=== PATIENT | female | born 1960 | race Caucasian/White ===

== ENCOUNTER 2023-07-01 08:43 | Emergency (ER) | payer BC, SELFPAY ==
[2023-07-01] VITALS (24 sets, daily range): BP systolic 119–150; BP diastolic 63–80; PULSE 69–97; RESP 12–20; TEMP 36.4; O2SAT 93–100
--- NOTE | ~2023-07-01 | XR_ITS ---
EXAMINATION: XR chest 1V portable Exam Date/Time: 07/01/2023 14:05 CDT HISTORY: HEART PALPITATIONS X 1 DAY WITHOUT PRIOR HX Comparison: None. RESULT: Lines, tubes, and devices: None. Lungs and pleura: Clear. Cardiomediastinal silhouette: Unremarkable. Other: No acute osseous or upper abdominal finding. IMPRESSION: No acute cardiopulmonary process. Reviewed, dictated and finalized at location K.
--- NOTE | 2023-07-01 08:46 | ECG_ITS ---
Measurements Intervals [place] Rate: 96 P: 64 SD: 121 QRS: 88 QRSD: 114 T: 18 QT: 322 QTc: 408 Interpretive Statements SINUS RHYTHM VENTRICULAR PREMATURE COMPLEXES INTRAVENTRICULAR CONDUCTION DELAY NONSPECIFIC ST & T-WAVE ABNORMALITY- ANT/INF LEADS BASELINE ARTIFACT- I, II, III, AVR, AVL, AVF BORDERLINE ECG NO PREVIOUS ECG AVAILABLE FOR COMPARISON Electronically Signed On 07-01-2023 9:33:18 CDT by Noé Enamorado D.O.
--- NOTE | 2023-07-01 08:59 | ECG_ITS ---
Measurements Intervals [place] Rate: 94 P: 66 [place]: 126 QRS: 86 QRSD: 89 T: -4 QT: 329 QTc: 413 Interpretive Statements SINUS RHYTHM POSSIBLE LEFT ATRIAL ENLARGEMENT LOW QRS VOLTAGE IN PRECORDIAL LEADS BORDERLINE ST-T WAVE ABNORMALITY- DIFFUSE LEADS BORDERLINE ECG COMPARED TO ECG 07/01/2023 08:52:15 NO SIGNIFICANT CHANGES Electronically Signed On 07-01-2023 15:37:21 CDT by Noé Enamorado D.O.
[2023-07-01 09:41] LABS: Basophils Absolute Auto 0.1 K/mm3 (0.0-0.1); Basophils Percent Auto 1.1 % (0.2-1.2); Eosinophils Percent Auto 0.4 % (0-4.4); Hematocrit 43.1 % (37.0-47.0); Immature Granulocyte Absolute 0.02 K/mm3 (0.00-0.031); Immature Granulocyte Percent A 0.3 % (0-0.5); Lymphocytes Absolute Auto 1.68 K/mm3 (0.9-3.2); Lymphocytes Percent Auto 22.5 % (18.3-44.2); Mean Corpuscular HGB Conc 32.5 g/dl (32-36); Mean Corpuscular Hemoglobin 30.4 pg (26-34); Mean Corpuscular Volume 93.7 fl (80-100); Mean Platelet Volume 11.2 fl (7.4-10.4); Monocytes Absolute Auto 0.6 K/mm3 (0.1-0.6); Monocytes Percent Auto 7.4 % (2.6-8.5); Neutrophils Absolute Auto 5.1 K/mm3 (1.3-6.7); Neutrophils Percent Auto 68.3 % (45.5-73.1); Platelet Count Result 276 k/mm3 (150-375); Red Cell Distribution Width 13.2 % (11.5-14.5); White Blood Count 7.5 K/mm3 (4.5-10.0)
[2023-07-01 09:53] LABS: Alanine Aminotransferase 43 U/L (6-35); Albumin Level 4.7 g/dL (3.5-5.1); Alkaline Phosphatase 88 U/L (38-126); Anion Gap 4 mmol/L (8-16); Aspartate Amino Transferase 45 U/L (14-36); Bilirubin,Total 0.9 mg/dL (0.2-1.3); Blood Urea Nitrogen 10 mg/dL (7-17); Calcium 9.3 mg/dL (8.4-10.2); Carbon Dioxide 28 mmol/L (22-30); Chloride 106 mmol/L (98-107); Estimated CRCL calculation 83 ml/min; Estimated Glomerular Filt Rate > 60; Glucose 105 mg/dL (65-110); Potassium 4.3 mmol/L (3.4-5.0); Sodium 138 mmol/L (137-145)
[2023-07-01 10:04] LABS: Troponin I < 0.012 ng/mL (0.000-0.034)
--- NOTE | 2023-07-01 10:24 | ED.ARRPALP ---
HPI - Arrhythmia/Palpitations General Chief Complaint: Arrhythmia/Palpitations Stated Complaint: Palpitations Time Seen by Provider: 07/01/23 09:21 History of Present Illness HPI narrative: 62-year-old female presented ED for evaluation of heart palpitations that she felt persisted from 12 midnight until 8 AM this morning. Patient states she has had heart palpitations previously but they were only short lasting. Patient denies any prior diagnosis of atrial fibrillation but states she does have a family history of it. Patient denies any history of coronary artery disease and has not had a stress test. Patient states while she was having her palpitations she had no associated chest pain. Patient does report some chest tightness but states that her heart palpitations have resolved Related Data Allergies Allergy/AdvReac Type Severity Reaction Status Date / Time erythromycin base Allergy Intermediate RASH Verified 07/01/23 09:31 Review of Systems Review of Systems: All systems reviewed & are unremarkable except as noted in HPI and below Exam Narrative: APPEARANCE: Well appearing, no pain, no distress, well-nourished. HEAD: normocephalic, atraumatic. EYES: PERRLA/EOMI, conjunctivae clear. NOSE: Normal no drainage NECK: Supple. No adenopathy, no masses. RESPIRATORY: Airway patent, respirations nonlabored. Clear to auscultation bilaterally, no rales, rhonchi, wheezing. CARDIOVASCULAR: Regular rate and rhythm without murmurs rubs or gallops. ABDOMINAL: Soft, nontender, nondistended, normal bowel sounds MUSCULOSKELETAL: Moves all extremities. Strength/ROM intact, No edema, No calf tenderness. NEURO: Alert. Cranial nerves II through XII intact. Grossly intact SKIN: Warm, dry. Normal Color Course Course Emergency Course: 60-year-old female presented the ED for evaluation for heart palpitations that lasted for approximately midnight until 8 AM. Patient has not been tachycardic in the emergency department. Patient feels symptom-free. Patient is afebrile with medical ptosis and a stable hemoglobin. Patient has no significant abnormalities on her CMP and has a normal magnesium. Patient had negative serial troponins. Patient's EKG did show some intermittent PVCs but no sustained SVT or atrial fib or tachycardia. Holter monitor was ordered. Patient and family were updated the results of the work-up. Patient was provided follow-up with cardiology and patient was encouraged of close follow-up with her primary care physician. Patient was also educated on reasons to return to the emergency department. All questions and concerns were addressed. Vital Signs Vital signs: Vital Signs Temperature 97.6 F 07/01/23 09:10 Pulse Rate 94 07/01/23 09:10 Respiratory Rate 16 07/01/23 09:10 Blood Pressure 150/80 H 07/01/23 09:10 Pulse Oximetry 100 07/01/23 09:10 Oxygen Delivery Room Air 07/01/23 09:10 Temperature 97.6 F 07/01/23 09:10 Pulse Rate 71 07/01/23 15:03 Respiratory Rate 18 07/01/23 15:03 Blood Pressure 140/77 07/01/23 15:03 Pulse Oximetry 100 07/01/23 15:03 Oxygen Delivery Room Air 07/01/23 09:10 MDM - Arrhythmia/Palpitations Differential Diagnosis Differential diagnosis: Likely palpitations, sinus tachycardia, artial fibrillation, artial flutter, supraventricular tachycardia and ventricular tachycardia Lab Data Attestation: I reviewed the patient's lab results. 07/01/23 09:33 07/01/23 09:33 Labs: Lab Results 07/01/23 07/01/23 07/01/23 Range/Units 09:33 09:33 12:36 WBC 7.5 (4.5-10.0) K/mm3 RBC 4.60 (4.2-5.4) M/mm3 Hgb 14.0 (12.0-15.0) g/dL Hct 43.1 (37.0-47.0) % MCV 93.7 (80-100) fl MCH 30.4 (26-34) pg MCHC 32.5 (32-36) g/dl RDW 13.2 (11.5-14.5) % Plt Count 276 (150-375) k/mm3 MPV 11.2 H (7.4-10.4) fl Immature Gran % (Auto) 0.3 (0-0.5) % Neut % (Auto) 68.3 (45.5-73.1) % Lymph % (Auto)
[2023-07-01 13:03] LABS: Troponin I < 0.012 ng/mL (0.000-0.034)
--- NOTE | 2023-07-05 17:08 | P.PCNHOL_ITS ---
Holter/Event Monitor Holter/Event Monitor Date of procedure: 07/05/23 Holter/Event Procedure: 48 Hr Holter Monitor Diagnosis: Palpitations Indications: Palpitations Image/Tracing Quality: Adequate Finding: The basic cardiac rhythm is sinus with normal [place] QRS and QT interval. The heart rate varies from a minimum of 53 to a maximum of 132. The in mean rate was 76. There were no abrupt pauses or abnormalities of AV conduction observed. Supraventricular ectopic activity was infrequent consisting of occasional inf requent PACs. There were no runs of atrial tachyarrhythmias there were no examples of atrial fibrillation. PVCs were frequent consisting of a single unifocal PVCs occurring 6.2% of the complexes. There was 1 ventricular couplet the remainder of these occurred in the form of single PVCs there were no ventricular triplets or runs. The patient submitted a diary in which there were no entries made presumably there were no symptoms Conclusion: 1. Sinus rhythm with normal heart rate variability and frequent ventricular ectopic activity which is monomorphic and not complex with frequent PVCs. 2. Very infrequent atrial ectopy 3. No symptoms during this exam Andreas Keith MD [facility]
== END 2023-07-01 15:00 | disposition home or self-care (01) ==
PROVIDERS: Emergency Provider Emergency Medicine; PCP Family Medicine
DX: R00.2 Palpitations (principal)
CPT/HCPCS: 36415; 71045; 80053; 83735; 84484; 85025; 93005; 93225; 93226; 99284

== ENCOUNTER 2025-03-11 10:11 | Outpatient (CLI) | payer BC, SELFPAY ==
--- NOTE | ~2025-03-11 | DEXA_ITS ---
Bone Density Report Name: ANA ANDERSON Age: 64 Sex: Female Ethnicity: White Date of : 1960 Indication: postmenopausal; screening for osteoporosis; Referring Provider: RADHA, [facility] Study: Bone densitometry was performed. Exam Date: March 11, 2025 Accession number: [id number] Bone Density: Region BMD T-score Z-score Classification AP Spine(L1-L4) 0.863 -1.7 0.0 Osteopenia Femoral Neck (Left) 0.514 -3.0 -1.5 Osteoporosis Total Hip (Left) 0.679 -2.2 -1.0 Osteopenia Femoral Neck (Right) 0.524 -2.9 -1.5 Osteoporosis Total Hip (Right) 0.739 -1.7 -0.5 Osteopenia Total Hip Mean 0.709 -2.0 -0.8 Osteopenia World Health Organization criteria for BMD impression classify patients as: Normal (T-score at or above -1.0), Osteopenia (T-score between -1.0 and -2.5), or Osteoporosis (T-score at or below -2.5). 10-year Fracture Risk: FRAX not reported because: Some T-score for Spine Total or Hip Total or Femoral Neck at or below -2.5 Treated for osteoporosis Clinical Information Provided by Patient: Is being treated for osteoporosis Has used the following medications: Vitamin D, Calcium Patient maximum height was 62.0 Menopause Age: 55 Drinks caffeinated beverages Onset of menses at age 13 Number of children 1 Impression: The patient has osteoporosis, based on the Left Femoral Neck T-score. Discussion: It is important to ask patients whether they are taking their medications and to encourage continued and appropriate compliance with their osteoporosis therapies to reduce fracture risk. It is also important to review their risk factors and encourage appropriate calcium and vitamin D intakes, exercise, fall prevention and other lifestyle measures. Follow-Up: Consider a repeat BMD and Vertebral Fracture Assessment (VFA) exam in 2 years or sooner if medically necessary, to reassess this patient's status. Reported by: ANNABELLE on 03/11/2025 10:51:00 AM. Reviewed, dictated and finalized at location A.
--- NOTE | ~2025-03-11 | MM_ITS ---
EXAMINATION: MM screening jerry BI w garcia HISTORY: Screening TECHNIQUE: Craniocaudal and mediolateral oblique 3-D tomosynthesis images were obtained and synthetic 2-D images were generated. CAD analysis was submitted and interpreted. COMPARISON: 12/25/2010 BREAST PARENCHYMAL COMPOSITION: Not dense: There are scattered areas of fibroglandular density. FINDINGS: There is no evidence of suspicious mass, calcification, or architectural distortion to sugg est malignancy in either breast. There has been no suspicious interval change. IMPRESSION: 1. No mammographic evidence of malignancy. 2. Recommend routine screening mammography in one year. BI-RADS Category 1: Negative Reviewed, dictated and finalized at location B.
--- OUTSIDE RECORDS SUMMARY | 2025-03-11 10:19 | XMS_ITS | CONTINUITY OF CARE DOCUMENT ---
Author Name stew mathias Address Unknown Organization [facility] Office Address [address] [place] [address] Phone [phone] Care Team Providers Care Care Professional Name Role Phone Cindi LIM, Ta Unavailable [phone] KARLEY GARCIA MD Unavailable INSURANCE PROVIDERS Payer name Policy type / Coverage type [employer] red alliance party ID BLUE [facility] Blue Shield [id number]
--- OUTSIDE RECORDS SUMMARY | 2025-03-11 10:19 | XMS_ITS | Clinical Summary ---
Author Organization [facility] Address [address] [address] Care Team Providers Care Center Customer Service Associate Name Role Phone Nahid Patel MD Unavailable [phone] Source Comments [facility],non-owned Affiliates and Associated Physician Practices is amultiple site organization consisting of ambulatory clinics and hospital sitesin [place], [place], [place] and [place]. This disclosure is being madepursuant to the Care Everywhere program and may not contain all information available regarding this patient. Last updated 18.[facility] Allergies Active Allergy Reactions Criticality Noted Date Comments Erythromycin Rash 05/26/2009 Medications * Be aware that medications may not be up to date on this document. Alwaysverify current medications with the patient. No known medications Active Problems Problem Noted Date Diagnosed Date Encounter for health-related screening 9 Overview (01/18/2018): Last PAP 02/29/12: normal Last MAMM says 10/14/08, ordered '12 DXA do in 2012 IMO update 01 19 2018 Family History Medical History Relation Name Comments Heart Disease Father Hypertension Father Hypertension Mother Relation Name Status Comments Father Mother Social History Tobacco Use Types Packs/Day Years Used Date Smoking Tobacco: Never Smokeless Tobacco: Never Alcohol Use Standard Drinks/Week Comments Yes 0 (1 standard drink = 0.6 oz pur e alcohol) social Comments No Sex and Gender Information Value Date Recorded Sex Assigned at Not on file Legal Sex Female 6:12 AM [employer]ERC[employer]MENT [employer]IST Gender Identity Not on file Sexual Orientation Not on file Last Filed Vital Signs Vital Sign Reading Time Taken Comments Blood Pressure 136/70 02/29/2012 12:48 PM CDT Pulse - - Temperature - - Respiratory Rate - - Oxygen Saturation - - Inhaled Oxygen Concentration - - Weight 51.7 kg (114 lb) 02/29/2012 12:48 PM CDT Height 158.8 cm (5' 2.5 ) 02/29/2012 12:48 PM CD T Body Mass Index 20.52 02/29/2012 12:48 PM CDT Plan of Treatment Health Maintenance Due Date Last Done Comments COLOGUARD (AGES 45-75) - COL ON CA SCREENING 1960 COLON MONITORING 1960 COLONOSCOPY - COLON CA SCREENING 1960 CT COLONOGRAPHY - COLON CA SCREENING 1960 Colorectal Cancer Screening 1960 FIT - COLON CA SCREENING 1960 FLEX SIG - COLON CA SCREENING 1960 LIPID TESTING 1960 HIV SCREENING 1975 HEPATITIS C SCREENING 12/06/1978 DTAP/TDAP/TD VACCINES (1 - Tdap) 1979 PNEUMOCOCCAL VACCINE 50+ (1 of 1 - PCV) 2010 ZOSTER VACCINE (1 of 2) 2010 MAMMOGRAM 10/21/2012 10/21/2010, 10/21/2010, 09/20/2008 COVID-19 VACCINE (1 - 2023-2 5 season) 2024 DEPRESSION SCREENING 10/21/2024 INFLUENZA VACCINE (Season Ended) 2025 Respiratory Syncytial Virus (RSV) Vaccine Pt: or over 60 yrs (1 - 1-dose 75+ series) 2035 HEPATITIS B VACCINE Aged Out No longe r eligible based on patient's age to complete this topic HIB VACCINE Aged Out No longer eligi ble based on patient's age to complete this topic HPV VACCINE Aged Out No longer eligi ble based on patient's age to complete this topic MENINGOCOCCAL (Group B) VACCINE SHARED DECISION-MAKING Aged Out No longer eligible based on patient's age to complete this topic MENINGOCOCCAL GROUPS A/C/Y/W VACCINE Aged Out No longer eligible b ased on patient's age to complete this topic Insurance BC/[facility] [place]/[employer] [place] ANTHEM Care Teams Center Customer Service Associate Relationship Specialty Start Date End Date Nahid Patel MD [address] [place] [place] [address] PCP - OBGYN 7/21/09
== END 2025-03-11 10:12 | disposition home or self-care (01) ==
LOC: ANHIMG 10:15
PROVIDERS: PCP Family Medicine; Visit Provider Family Medicine
DX: Z12.31 Encounter for screening mammogram for malignant neoplasm of breast (principal); M85.89 Other specified disorders of bone density and structure, multiple sites; M81.0 Age-related osteoporosis without current pathological fracture
CPT/HCPCS: 77063; 77067; 77080